=== PATIENT | male | born 1945 | race Caucasian/White ===

== ENCOUNTER 2019-12-05 01:18 | Emergency (ER) | payer OTHER ==
[~2019-12-05] VITALS: Ht 180.3 cm; Wt 68.0 kg
[2019-12-05 01:19] VITALS: Ht 180.3 cm; Wt 68.0 kg
[2019-12-05 02:10] VITALS: BP 159/94
== END 2019-12-05 02:10 | disposition other institution (70) ==
LOC: EDBD 01:18 → ED 01:18
DX: Z02.89 Encounter for other administrative examinations (principal)